=== PATIENT | male | born 2000 | race Caucasian/White ===

== ENCOUNTER 2021-05-04 18:40 | Emergency (ER) | payer OTHER, SELFPAY ==
--- NOTE | ~2021-05-04 | XR_ITS ---
EXAMINATION: XR FOOT, RIGHT CLINICAL INFORMATION: Pain. COMPARISON: None TECHNIQUE: AP, lateral, and oblique views of the right foot. FINDINGS: No acute fractures or malalignment. Joint spaces are maintained. Mild soft tissue edema without joint effusion or radiopaque foreign bodies. XR/XR foot RT min 3V IMPRESSION: No acute fractures or malalignment.
[2021-05-04 18:51] VITALS: BP 135/76; PULSE 88; O2SAT 100
[2021-05-04 19:11] VITALS: BP 132/78; PULSE 81; RESP 18; TEMP 37; O2SAT 99; BMI 20.5
[2021-05-04] MEDS: Acetaminophen 325 MG TABLET 650 MG PO (19:19)
--- NOTE | 2021-05-04 20:52 | ED.LOWEXIN ---
HPI - Extremity Injury (Lower) General Chief Complaint: Extremity Injury, Lower Stated Complaint: right foot injury Time Seen by Provider: 05/04/21 20:39 Source: patient Mode of arrival: ambulatory Limitations: no limitations History of Present Illness HPI Narrative: Patient complaining of pain on the dorsum of right foot as about 300 lb of milk carton ran over his right foot able to move his toes able to ambulate slight swelling of the dorsum of the foot EMS gave him 30 mg of Toradol before arrival, no other injury Related Data Previous Rx's Medication Instructions Recorded ibuprofen 600 mg tablet 600 mg PO Q6H PRN #20 tab 05/04/21 Allergies Allergy/AdvReac Type Severity Reaction Status Date / Time No Known Allergies Allergy Verified 05/04/21 19:15 Review of Systems Review of Systems: Yes all other systems are reviewed and are negative PMFSH Past Medical History Medical History No known health problems Social History Social History Advance Directives: No Advance Directives Information Provided: Yes Physical Exam Vital Signs: Vital Signs: Last Vital Signs Temp 98.6 F 05/04/21 19:11 Pulse 81 05/04/21 19:11 Resp 18 05/04/21 19:11 BP 132/78 05/04/21 19:11 Pulse Ox 99 05/04/21 19:11 BMI result Body Mass Index 20.5 Const: General: comfortable and no acute distress Extrem: Ankle/foot/toe images: 1. Soft tissue swelling and tenderness on the dorsum of the right foot bones are intact no deformity neurovascular intact MDM - Extremity Injury (Lower) MDM Narrative Medical decision making narrative: X-ray of the right foot negative for fracture patient able to ambulate discharge patient home on pain medication Discharge Plan Discharge Clinical Impression: Contusion of foot, right Patient Disposition: Home, Self-Care Instructions: Foot Contusion (ED) Additional Instructions: Apply ice Ibuprofen for pain Follow with PCP if any concerns Prescriptions: New ibuprofen 600 mg tablet 600 mg PO Q6H PRN (Reason: pain) Qty: 20 RF: 0 Interventions: ED Discharge Assessment Last Done: 05/04/21 20:55 Discharge Date/Time: 05/04/21 20:55
== END 2021-05-04 20:55 | disposition home or self-care (01) ==
PROVIDERS: Emergency Provider Internal Medicine
DX: S90.31XA Contusion of right foot, initial encounter (principal); X58.XXXA Exposure to other specified factors, initial encounter; Y93.9 Activity, unspecified; Y92.9 Unspecified place or not applicable; Y99.9 Unspecified external cause status
CPT/HCPCS: 73630; 99283